=== PATIENT | female | born 1965 | race Two or more races ===

== ENCOUNTER → 2016-08-30 | Outpatient (CLI) | payer MEDICAID ==
--- NOTE | 2016-08-30 14:27 | DX ---
Bilateral Knees Bilateral Ankles Bilateral Feet at 1:00 p.m. Clinical History: 51-year-old female with polyarthralgia. Assess for erosions and degenerative change s. ICD-10 Diagnostic Code: M25.50. Comparison Study: None. Findings: BILATERAL KNEES (Weightbearing AP, Lateral, and [place] Views): Bone mineralization is preserved. The femorotibial and patellofemoral joint spaces are also preserved. There is no fracture, dislocation, periostitis, or lytic or blastic lesion. There is no marginal erosion, subchondral sclerosis, or soft tissue calcification. There is no loose osteochondral body or suprapatellar joint effusion. Normal-v ariant fabellae are seen posterolaterally. There is a tiny posterior superior patellar spur on the ri ght. There is a normal-variant bone island associated with the proximal lateral tibial metadiaphyseal junction. There are small spurs associated with the distal medial femoral metadiaphyseal junctions. Impression: Minimal degenerative changes. BILATERAL ANKLES (AP, Lateral, and Mortise Views): Bone mineralization is preserved. There is no frac ture, dislocation, periostitis, loose osteochondral body, or marginal erosion. The ankle mortise is m aintained on each side. The subtalar joint is normal. Unfused os peronei are seen along the plantar m id-feet near the cuboid bones. There is no ankle joint effusion on either side. Impression: Normal. BILATERAL FEET (AP, Oblique, and Lateral Projections): Bone mineralization is preserved. There is a m ild degree of metatarsophalangeal joint space narrowing, right greater than left. A small osseous bun ion is seen along the medial portion of each great toe metatarsal head, again right greater than left . There is no marginal erosion, fracture, dislocation, periostitis, or soft tissue calcification. The tarsometatarsal alignments are anatomic. Unfused os peronei are seen along each lateral midfoot. The re is no digital soft tissue swelling. Impression: Minimal degenerative narrowing at the level of the great toe metatarsophalangeal joints, right greater than left.
== END ==
LOC: BRMIMAGING 12:55
PROVIDERS: ATTEND Internal Medicine
DX: M25.561 Pain in right knee (principal); M25.562 Pain in left knee; M25.571 Pain in right ankle and joints of right foot; M25.572 Pain in left ankle and joints of left foot
CPT/HCPCS: 73564-PO; 73610-PO; 73630-PO